=== PATIENT | female | born 1975 | race Asian ===

== ENCOUNTER → 2019-03-26 | Outpatient (CLI) | payer BC ==
[2019-03-26 17:50] LABS: URINE PROTEIN:CREAT RATIO 0.23 (0.00-0.14)
[2019-03-26 18:00] LABS: ALBUMIN 4.2 gm/dL (3.5-5.0); BILIRUBIN,TOTAL 0.2 mg/dL (0.0-1.0); CALCIUM 9.6 mg/dL (8.4-10.2); CHOLESTEROL RISK RATIO 5.6; CREATININE, serum 0.6 (0.52-1.25); POTASSIUM 4.2 mmol/L (3.4-5.0); TOTAL PROTEIN 7.3 gm/dL (6.4-8.2)
== END ==
LOC: ZCOL.LAB 16:36
PROVIDERS: Family Medicine
DX: E11.9 Type 2 diabetes mellitus without complications (principal); N89.8 Other specified noninflammatory disorders of vagina; E78.5 Hyperlipidemia, unspecified

== ENCOUNTER 2023-08-11 11:51 | Emergency (ER) | payer SELFPAY ==
[~2023-08-11] VITALS: Ht 165 cm; Wt 90.5 kg
[2023-08-11 12:07] VITALS: BP 181/108; TEMP 98.1
[2023-08-11 13:08] LABS: HEMOGLOBIN 11.1 g/dl (12.5-16.0); MEAN CELL VOLUME 65 fl (80.0-100.0); MEAN CORPUSCULAR HEMOGLOBIN 20 pg (27-31); MEAN CORPUSCULAR HGB CONC 31 g/dl (33.0-37.0); MEAN PLATELET VOLUME 10.1 fl (7.4-10.4); PLATELET COUNT 369 K/mm3 (130-400); RED BLOOD COUNT 5.52 M/mm3 (4.10-5.30); REDCELL DISTRIBUTION WIDTH-CV 20.6 % (11.5-14.5)
[2023-08-11 13:18] LABS: HEMATOCRIT 35.7 % (37.0-47.0)
[2023-08-11 13:26] LABS: CREATININE, serum 1.1 mg/dL (0.57-1.11); POTASSIUM 4.5 mmol/L (3.5-4.5)
[2023-08-11] MEDS ORDERED: GLUCOPHAGE500 MG/TAB PO (13:56)
[2023-08-11] MEDS ORDERED: DIABETA 5MG5 MG/TAB PO (13:56)
[2023-08-11 14:15] VITALS: PULSE 90
== END 2023-08-11 15:25 | disposition home or self-care (01) ==
LOC: COL.ER 11:51
PROVIDERS: Emergency Medicine
DX: E11.65 Type 2 diabetes mellitus with hyperglycemia (principal); I10 Essential (primary) hypertension

== ENCOUNTER 2024-03-19 20:19 | Emergency (ER) | payer BC ==
[~2024-03-19] VITALS: Ht 165.1 cm; Wt 86.4 kg
[~2024-03-19 20:19] MED LIST: DIABETA 5MG5 MG/TAB PO; GLUCOPHAGE500 MG/TAB PO
[2024-03-19 20:34] VITALS: TEMP 98.1
[2024-03-19] MEDS ORDERED: Albuterol 90 MCG/PUFF 8 GM MDI IH ONE (21:15)
[2024-03-19] MEDS ORDERED: HYDROcodone/Chlorphen Polst ER Susp 10-8 MG/5 ML UD PO ONE (21:15)
[2024-03-19 22:34] VITALS: BP 175/106; PULSE 101
[2024-03-20] MEDS ORDERED: TESSALON PERLE200 MG PO (00:49)
== END 2024-03-19 22:34 | disposition home or self-care (01) ==
LOC: COL.ER 20:19
DX: J20.9 Acute bronchitis, unspecified (principal)

== ENCOUNTER 2024-05-15 10:48 | Emergency (ER) | payer BC ==
[~2024-05-15] VITALS: Ht 165.1 cm; Wt 90.0 kg
[~2024-05-15 10:48] MED LIST changes: +TESSALON PERLE200 MG PO
[2024-05-15 10:57] VITALS: TEMP 98.3
[2024-05-15 13:00] LABS: BASO % 0.6 % (0.0-2.0); EOS # 0.1 K/mm3 (0.0-0.7); EOS % 1.7 % (0.0-4.0); GRAN % 54.5 % (42.2-75.2); HEMATOCRIT 37.3 % (37.0-47.0); HEMOGLOBIN 12.5 g/dl (12.5-16.0); LYMPH # 2.1 K/mm3 (1.2-3.4); MEAN CELL VOLUME 75 fl (80.0-100.0); MEAN CORPUSCULAR HEMOGLOBIN 25 pg (27-31); MEAN CORPUSCULAR HGB CONC 34 g/dl (33.0-37.0); MEAN PLATELET VOLUME 10.4 fl (7.4-10.4); MONO # 0.3 K/mm3 (0.1-0.6); PLATELET COUNT 305 K/mm3 (130-400); RED BLOOD COUNT 4.96 M/mm3 (4.10-5.30); REDCELL DISTRIBUTION WIDTH-CV 15.8 % (11.5-14.5)
[2024-05-15 13:11] LABS: ALANINE AMINOTRANSFERASE 17 U/L (0-55); ALBUMIN 4.1 g/dL (3.5-5.0); ALKALINE PHOSPHATASE 54 U/L (40-150); ANION GAP 11 mmol/L (7-16); AST,SGOT 14 U/L (5-34); BILIRUBIN,TOTAL 0.3 mg/dL (0.2-1.2); BLOOD UREA NITROGEN 11 mg/dL (7-19); CHLORIDE 103 mEq/L (98-107); CREATININE, serum 0.77 mg/dL (0.57-1.11); GLUCOSE 166 mg/dL (70-99); SODIUM 141 mEq/L (136-145); TOTAL PROTEIN 6.8 g/dl (6.2-8.1)
[2024-05-15 13:20] LABS: TROPONIN-I < 0.010 ng/mL (0.00-0.033)
[2024-05-15] MEDS ORDERED: NORVASC 5MG5 MG/TAB PO (13:36)
[2024-05-15 13:46] VITALS: BP 153/97; PULSE 82
== END 2024-05-15 13:46 | disposition home or self-care (01) ==
LOC: COL.ER 10:48
PROVIDERS: Personal Emergency Response Attendant
DX: I10 Essential (primary) hypertension (principal); R20.2 Paresthesia of skin; Z79.899 Other long term (current) drug therapy